=== PATIENT | female | born 1935 | race Caucasian/White ===

== ENCOUNTER 2021-03-10 09:09 | Day surgery (SDC) | payer OTHER ==
[2021-01-29 14:25] VITALS: BMI 34.0
[2021-03-10] MEDS ORDERED: ceFAZolin SODIUM 1 GM VIAL ONE ×2 (11:05→11:38)
[2021-03-10] MEDS ORDERED: TETRACAINE 0.5% OPHTH SOLN 2 ML BOTTLE ONE (11:05)
[2021-03-10] MEDS ORDERED: POVIDONE-IODINE 5% OPHTHALMIC PREP 30 ML SOLUTION ONE (11:05)
[2021-03-10] MEDS ORDERED: BUPIVACAINE HCL 50 ML ONE (11:05)
[2021-03-10] MEDS ORDERED: ERYTHROMYCIN 0.5% OPHTHALMIC OINTMENT 3.5 GM TUBE ONE (11:05)
[2021-03-10] MEDS ORDERED: THROMBIN (BOVINE) 5,000 UNIT VIAL TP ONE (11:05)
[2021-03-10] MEDS ORDERED: OXYMETAZOLINE 0.05% NASAL SOLUTION 15 ML BOTTLE NS ONE (11:06)
[2021-03-10] MEDS ORDERED: LIDOCAINE HCL 2% JELLY (5 ML/TUBE) ONE (11:08)
[2021-03-10] MEDS ORDERED: PROPOFOL 20 ML ONE (11:08)
[2021-03-10] MEDS ORDERED: LIDOCAINE HCL/PF 2% SDV 5ML VIAL ONE (11:08)
[2021-03-10] MEDS ORDERED: MIDAZOLAM HCL 2 MG/2 ML SINGLE DOSE VIAL ONE (11:09)
[2021-03-10] MEDS ORDERED: ONDANSETRON 4 MG/2 ML VIAL ONE (11:39)
[2021-03-10] MEDS ORDERED: DEXAMETHASONE SOD PHOSPHATE 4 MG/1 ML VIAL ONE (11:39)
[2021-03-10] MEDS ORDERED: KETOROLAC TROMETHAMINE 30 MG/1 ML VIAL ONE (11:39)
[2021-03-10] MEDS ORDERED: ONDANSETRON 4 MG/2 ML VIAL IVPUSH PRN (12:53)
[2021-03-10] MEDS ORDERED: ALBUTEROL SO4 0.083% IH SOL 2.5 MG/3 ML VIAL.NEB. NEB ONE ×2 (13:38→14:24)
[2021-03-10] MEDS ORDERED: ACETAMINOPHEN INJECTION 100 ML IVPB ONE (13:48)
[2021-03-10] MEDS ORDERED: ACETAMINOPHEN 1000 MG/100 ML VIAL IVPB PRN (14:00)
[2021-03-10 14:52] VITALS: TEMP 97.3
[2021-03-10 15:24] VITALS: BP 133/78; PULSE 67
== END 2021-03-10 15:15 | disposition home or self-care (01) ==
LOC: FASU 09:09
PROVIDERS: ATTEND Ophthalmology
PROC: 09BU0ZZ Excision of Right Ethmoid Sinus, Open Approach (ICD-10-PCS; 2021-03-10)
PROC: 081X0Z3 Bypass Right Lacrimal Duct to Nasal Cavity, Open Approach (ICD-10-PCS; principal; 2021-03-10 11:47)
DX: H04.221 Epiphora due to insufficient drainage, right side (principal); H04.552 Acquired stenosis of left nasolacrimal duct
CPT/HCPCS: 88304-TC; 94760; J0131

== ENCOUNTER → 2021-05-26 | Day surgery (SDC) | payer OTHER ==
[2021-05-22 10:19] VITALS: BMI 34.0
[~2021-05-26] MED LIST: ACETAMINOPHEN 1000 MG/100 ML BAG IVPB ONE; ACETAMINOPHEN 325 MG TABLET (FP) PO ONE; ALBUTEROL SO4 0.083% IH SOL 2.5 MG/3 ML VIAL.NEB. NEB ONE; ALBUTEROL SO4 HFA INHALER IH ONE; BUPIVACAINE HCL 50 ML ONE; DEXAMETHASONE SOD PHOSPHATE 4 MG/1 ML VIAL ONE; ERYTHROMYCIN 0.5% OPHTHALMIC OINTMENT 3.5 GM TUBE ONE; KETOROLAC TROMETHAMINE 30 MG/1 ML VIAL ONE; LIDOCAINE 1%/EPI 1:100000 (20 ML MULTI DOSE VIAL) ONE; LIDOCAINE HCL 2% JELLY (5 ML/TUBE) ONE; ONDANSETRON 4 MG/2 ML VIAL IVPUSH PRN; ONDANSETRON 4 MG/2 ML VIAL ONE; OXYMETAZOLINE 0.05% NASAL SOLUTION 15 ML BOTTLE NS ONE; POVIDONE-IODINE 5% OPHTHALMIC PREP 30 ML SOLUTION ONE; PROPOFOL 20 ML ONE; SEVOFLURANE 250 ML BTL ONE; SUCCINYLCHOLINE CHLORIDE 200 MG/10 ML SYRINGE ONE; TETRACAINE 0.5% OPHTH SOLN 2 ML BOTTLE ONE; THROMBIN (BOVINE) 5,000 UNIT VIAL TP ONE; ceFAZolin SODIUM 1 GM VIAL ONE; oxyCODONE HCL 5 MG TABLET PO PRN
[2021-05-26 12:04] VITALS: PULSE 63
[2021-05-26 13:30] VITALS: TEMP 98
[2021-05-26 16:08] VITALS: BP 133/62
== END | disposition home or self-care (01) ==
LOC: FASU 06:03
PROVIDERS: ATTEND Ophthalmology
PROC: 09BV0ZZ Excision of Left Ethmoid Sinus, Open Approach (ICD-10-PCS; 2021-05-26)
PROC: 081Y0Z3 Bypass Left Lacrimal Duct to Nasal Cavity, Open Approach (ICD-10-PCS; principal; 2021-05-26 08:08)
DX: H04.552 Acquired stenosis of left nasolacrimal duct (principal)
CPT/HCPCS: 88304-TC; 88311-TC; 94760